=== PATIENT | male | born 1975 | race Two or more races ===

== ENCOUNTER 2021-12-18 23:14 | Emergency (ER) | payer OTHER ==
[~2021-12-18] VITALS: Ht 175.3 cm; Wt 95.3 kg
[2021-12-19] MEDS ORDERED: ZOFRAN8 MG PO (04:07)
[2021-12-19] MEDS ORDERED: PEPCID40 MG PO (04:07)
== END 2021-12-19 04:18 ==
LOC: ER 23:14
DX: K29.70 Gastritis, unspecified, without bleeding (principal)